=== PATIENT | male | born 2000 | race Hispanic/Latino ===

== ENCOUNTER 2020-01-30 03:25 | Emergency (ER) | payer SELFPAY ==
[2020-01-30] MEDS ORDERED: Ondansetron PF 4 MG/2 ML Vial ONE (03:35)
--- NOTE | 2020-01-30 07:41 | CT ---
PRELIMINARY REPORT/DIRECT RADIOLOGY/EMERGENCY AFTER HOURS PROCEDURE: EXAM: CT Head and Cervical Spine Without IV contrast. CLINICAL HISTORY: PT FOUND DOWN. ETOH TECHNIQUE: Axial computed tomography images were acquired of the head and the cervical spine without intravenous contrast. Sagittal and coronal reformatted images were obtained of the cervical spine. COMPARISON: None provided. FINDINGS: BRAIN: No acute intraparenchymal hemorrhage. No mass lesion. No CT evidence for acute territorial inf arct. No midline shift or extra-axial collection. VENTRICLES No hydrocephalus. ORBITS The orbits are unremarkable. SINUSES AND MASTOIDS The paranasal sinuses and mastoid air cells are clear. SOFT TISSUES No significant facial or scalp soft tissue swelling evident. No radiopaque foreign body is seen. BONES No acute osseous pathology evident. No acute fracture is evident on images of the head or cervi quynh spine. DISKS/DEGENERATIVE CHANGES No significant disc or facet degeneration. Posterior cervical spine vertebral body alignment is within normal limits. IMPRESSION: 1. No acute intracranial findings. No acute intracranial injury evident. 2. No cervical spine fracture evident. ELECTRONICALLY SIGNED BY: Mo Feldman MD Jan 30, 2020 4:23:28 AM REHABILITATION PROGRAM MANAGER FINAL REPORT BRAIN CT WITHOUT IV CONTRAST: EMERGENCY AFTER HOURS EXAM TIME: 4:05 AM. DATE: 01/30/2020. Some motion artifact. No mass or bleeding. This report is in agreement with the preliminary report. Transcribed Date/Time: 01/30/2020 7:57 AM
--- NOTE | 2020-01-30 07:50 | CT ---
PRELIMINARY REPORT/DIRECT RADIOLOGY/EMERGENCY AFTER HOURS PROCEDURE: EXAM: CT Head and Cervical Spine Without IV contrast. CLINICAL HISTORY: PT FOUND DOWN. ETOH TECHNIQUE: Axial computed tomography images were acquired of the head and the cervical spine without intravenous contrast. Sagittal and coronal reformatted images were obtained of the cervical spine. COMPARISON: None provided. FINDINGS: BRAIN: No acute intraparenchymal hemorrhage. No mass lesion. No CT evidence for acute territorial inf arct. No midline shift or extra-axial collection. VENTRICLES No hydrocephalus. ORBITS The orbits are unremarkable. SINUSES AND MASTOIDS The paranasal sinuses and mastoid air cells are clear. SOFT TISSUES No significant facial or scalp soft tissue swelling evident. No radiopaque foreign body is seen. BONES No acute osseous pathology evident. No acute fracture is evident on images of the head or cervi quynh spine. DISKS/DEGENERATIVE CHANGES No significant disc or facet degeneration. Posterior cervical spine verteb ral body alignment is within normal limits. IMPRESSION: 1. No acute intracranial findings. No acute intracranial injury evident. 2. No cervical spine fracture evident. ELECTRONICALLY SIGNED BY: Mo Feldman MD Jan 30, 2020 4:23:28 AM SEED ANALYSIS LABORATORY ASSISTANT FINAL REPORT CERVICAL SPINE CT SCAN WITHOUT IV CONTRAST: EMERGENCY AFTER HOURS EXAM DATE: 01/30/2020. TIME: 4:04 AM. No acute fracture or dislocation. This report agrees with the preliminary report. Transcribed Date/Time: 01/30/2020 8:00 AM
== END 2020-01-30 04:46 | disposition home or self-care (01) ==
LOC: ERS 03:25
DX: S06.0X9A Concussion with loss of consciousness of unspecified duration, initial encounter (principal); F10.129 Alcohol abuse with intoxication, unspecified; R11.2 Nausea with vomiting, unspecified; W19.XXXA Unspecified fall, initial encounter
CPT/HCPCS: 70450; 72125; 96374; J2405